=== PATIENT | male | born 2000 | race Caucasian/White ===

== ENCOUNTER 2025-08-06 06:05 | Day surgery (SDC) | payer BC, SELFPAY ==
--- NOTE | 2025-08-02 10:23 | P.HP_ITS ---
History of Present Illness *Admission Date: 08/06/25 *History of present illness: Mr. Flynn is a 24-year-old gentleman who is here for diagnostic EGD. He has struggled with intermittent bloating, belching, reflux, regurgitation and vomiting. This has been going on for about a year. He reports no weight loss, hematemesis, melena or dysphagia. He has noted a change in his bowel movements with more frequency but the feeling of incomplete defecation. He has had no prior endoscopy or colonoscopy. The patient reports no family history of Crohn's, colitis or colon cancer. He reports no early satiety or abdominal pain. He did not improve with [id number] herbal Iberogast or psyllium Konsyl. The examination is deemed medically necessary for diagnostic EGD. The patient has been seen, interviewed and examined prior to the procedure by both myself and the anesthesia provider. [facility] Disclaimer: The information contained in this section may have been updated after the patient was seen, as this information can be updated by other users. Medical History History of gastroesophageal reflux (GERD) Surgical History History of oral surgery Family History Other No significant family history Social History (Updated 08/06/25 @ 06:54 by Karson Quinn CRNA) Smoking Status: Never smoker alcohol intake: current alcohol intake frequency: a few times a week substance use type: denies use current occupational status: employed Travel in the last 8 weeks?: Inside the [place] Have you lived/traveled outside US in past 30 days?: No Contact w/someone who lives/traveled outside US past 30 days?: No Exposure to someone with infectious disease in past 14 days?: No Do you have a fever (greater than 100.4 F or 38 C)?: No Have you tested positive for COVID-19?: No Exposed to someone with COVID-19 in past 14 days?: No Do you have a sore throat?: No Do you have a cough?: No Do you have any weakness?: No Are you experiencing any nausea/vomitting?: No Do you have any diarrhea?: No Are you experiencing any unusual bleeding?: No Do you have any muscle aches/pain?: No Do you have any abdominal pain?: No Are you experiencing loss of taste or smell?: No Review of Systems Review of Systems Review of systems (narrative): Negative *Cardiovascular Comments: Negative *Gastrointestinal Comments: Negative *Genitourinary Comments: Negative *Musculoskeletal Comments: Negative *Neurologic Comments: Negative Meds Home Medications and Allergies Home Medications ?Medication ?Instructions ?Recorded ?Confirmed ?Type No Known Home Medications 01/06/2512/26 History New Prescriptions to Start Prescriptions: Allergies Allergy/AdvReac Type Severity Reaction Status Date / Time No Known Allergies Allergy Verified 06/02/25 09:53 Exam *Routine HEENT Exam Head: Present normocephalic Eye: Present EOMI and PERRL ENT: Present mucous membranes moist *Routine Neck Exam Neck: Present supple *Routine Respiratory Exam Respiratory: Present CTA bilaterally *Routine Cardiovascular Exam Cardiovascular: Present RRR *Routine Abdominal Exam Abdominal: Present soft and normoactive bowel sounds; Absent tenderness *Routine Rectal Exam Rectal:: deferred *Routine Genitalia Exam Genitalia:: deferred *Routine Extremities Exam Extremities: Absent cyanosis, clubbing or edema *Routine Skin Exam Skin: Present warm; Absent rash *Routine Neurological Exam Neurological: Present alert and oriented X3 Assessment and Plan *Assessment and plan (1) GERD (gastroesophageal reflux disease): Status: Acute Category: Medical Code(s): K21.9 - Gastro-esophageal reflux disease without esophagitis (2) Bloating: Status: Acute Category: Medical Code(s): R14.0 - Abdominal distension (gaseous) (3) Belching: Status: Acute Category: Medical Code(s): R14.2 - Eructation (4) Regurgitation of food: Status: Acute Category: Medical Code(s): R11.10 - Vomiting, unspecified (5) Nausea and vomiting: Status: Acute Category: Medical Code(s): R11.2 - Nausea with vomiting, unspecified (6) Intermittent diarrhea: Status: Acute Category: Medical Code(s): R19.7 - Diarrhea, unspecified (7) Incomplete defecation: Status: Acute Category: Medical Code(s): R15.0 - Incomplete defecation Plan A/P: 1. Bloating, belching, regurgitation of food with nausea and intermittent vomiting is the preprocedural diagnosis. The patient also has intermittent diarrhea. The patient will be anesthetized/sedated using MAC sedation. The patient has been seen and examined. Cardiac and lung assessment prior to the examination is stable. Proceed with planned diagnostic EGD.
[2025-08-03 15:10] VITALS: BMI 22.8
[2025-08-06 06:16] VITALS: BP 120/66; PULSE 62; RESP 16; TEMP 36.3; O2SAT 100; BMI 22.8
[2025-08-06] MEDS: LACTATED RINGERS 1000ML 1,000 ML 50 ML IV (06:29)
--- NOTE | 2025-08-06 06:43 | P.PCN_ITS ---
[facility] Procedure Note Date: 08/06/25 Time: 07:39 Procedure Note:: Upper Endoscopy Procedure Report: Esophagogastroduodenoscopy with cold biopsies Endoscopost: Alejo Butt II, MD Referring Physician: None Date of Procedure: August 06, 2025 Equipment: Olympus GIF-1100 standard upper endoscope Sedation: MAC sedation Indications: Mr. Flynn is a 24-year-old gentleman who is here for diagnostic EGD. He has struggled with intermittent bloating, belching, reflux, regurgitation and vomiting. This has been going on for about a year. He reports no weight loss, hematemesis, melena or dysphagia. He has noted a change in his bowel movements with more frequency but the feeling of incomplete defecation. This has improved some. He has had no prior endoscopy or colonoscopy. The patient reports no family history of Crohn's, colitis or colon cancer. He reports no early satiety or abdominal pain. He did not improve with [id number] herbal Iberogast or psyllium Konsyl. The examination is deemed medically necessary for diagnostic EGD. Procedure: Prior to the procedure, a history and physical exam was performed, and patient's medications and allergies were reviewed. The risks, benefits and alternatives of the sedation and procedure were discussed with the patient. All questions were answered and informed consent was obtained. The patient was brought to the procedure room. Patient identification and proposed procedure were verified by the physician and the nurse. The patient was placed in a left lateral decubitus position and the scope was passed under direct vision. Throughout the procedure, the patient's blood pressure, pulse, and oxygen saturations were monitored continuously. The upper GI endoscopy was accomplished without difficulty. The patient tolerated the procedure well. Findings: The scope was passed directly into the upper esophagus and advanced to the third portion of the duodenum. The post bulbar duodenum and duodenal bulb were normal with normal mucosa and conniventes. 2 cold biopsies were taken from the second portion of the duodenum for the disaccharidase assay. The scope was withdrawn through a normal duodenal bulb and pylorus into the stomach. There was some linear reactive gastropathy of the body of the stomach. The remainder of the antrum body and fundus were normal. Cold biopsies were taken from the body of the stomach along the lesser curvature. Upon retroflexion there was no hiatal hernia. The scope was then withdrawn into the esophagus. There was 2 linear superficial erosions distally consistent with grade A?B (LA classification) reflux esophagitis. There was no evidence of Dunbar's esophagus. The remainder of the esophageal mucosa was normal. Impression: 1. Grade A?B reflux esophagitis (LA classification) 2. Mild linear reactive gastropathy Plan: I will follow-up the biopsies and disaccharidase assay. I will place the patient on [place] for complicated GERD (reflux esophagitis). Further treatment will be based on disaccharidase assay. I will discuss the findings with the patient and family.
--- NOTE | 2025-08-06 06:52 | P.PNANES_ITS ---
[facility] Disclaimer: The information contained in this section may have been updated after the patient was seen, as this information can be updated by other users. Medical History History of gastroesophageal reflux (GERD) Surgical History History of oral surgery Family History Other No significant family history Social History Smoking Status: Never smoker alcohol intake: current alcohol intake frequency: a few times a week substance use type: denies use current occupational status: employed Travel in the last 8 weeks?: Inside the [place] [facility] Anesthesia Checklist Patient Identification Patient Identification: Arm Band and Family Structural Data Admitted From: Home Planned Operative Procedure/s: EGD Verified Documents: Surgical Consent and History and Physical NPO Status Verified Time NPO: 00:00 Additional verifications Patient : No Anesthesia Reactions: No Hx Blood Transfusions: No Blood Transfusion Reaction: No Cephalosporin Allergy: No Previous Colonoscopy: No Airway Assessment Mallampati Score:: Class II C-Spine Mobility Assessed: Yes TMJ Mobility Assessed: Yes Dentition: Good Dentition Neurological Assessment Level of Consciousness: Awake, Alert, Appropriate and Follows Commands Hx Seizures: No Numbness or tingling in extremities: No Anesthesia Plan Anesthesia Risk discussed: Yes ASA Class: I Anesthesia Type: MAC Preoperative Comments Pre-Operative Comments: DYSPHAGIA, BURPING/ VOMITTINE
[2025-08-06 07:45] VITALS: BP 129/76; PULSE 90; RESP 16; TEMP 36.4; O2SAT 99
[2025-08-06 07:55] VITALS: BP 118/72; PULSE 65; RESP 17; TEMP 36.4; O2SAT 99
[2025-08-06 08:05] VITALS: BP 121/69; PULSE 69; RESP 17; TEMP 36.4; O2SAT 100
[2025-08-06 08:15] VITALS: BP 114/69; PULSE 63; RESP 18; TEMP 36.4; O2SAT 100
[2025-08-10 18:34] LABS: Interpretation Notes (.); Lactase 6.73 (>/= 14.0); Maltase 90.8 (>/= 110.0); Palatinase 6.24 (>/= 8.5); Reference Notes (.); Sucrase 22.95 (>/= 25.0)
== END 2025-08-06 08:35 | disposition home or self-care (01) ==
PROVIDERS: Visit Provider Internal Medicine Gastroenterology
PROC: 0DJ08ZZ Inspection of Upper Intestinal Tract, Via Natural or Artificial Opening Endoscopic (ICD-10-PCS; CPT 43239; principal; 2025-08-06 07:30)
DX: K21.00 Gastro-esophageal reflux disease with esophagitis, without bleeding (principal); K31.89 Other diseases of stomach and duodenum; R19.4 Change in bowel habit; R15.0 Incomplete defecation; R19.7 Diarrhea, unspecified
CPT/HCPCS: 43239; 82657; J2003; J2704; J7120